=== PATIENT | male | born 1985 | race Caucasian/White ===

== ENCOUNTER 2017-10-18 07:22 | Day surgery (SDC) | payer OTHER ==
[2017-10-18] MEDS ORDERED: BUPIVACAINE 0.25% 30 ML SDV ONE (07:50)
--- NOTE | 2017-10-18 08:12 | PDHPUP ---
History & Physical Update H&P update statement: This history and physical update is based on an assessment of the patient which was completed after admission or registration (within 24 hours), but prior to the surgery/procedure. H&P update: H&P reviewed & patient examined, no change in patient's condition since H&P completed
[2017-10-18] MEDS ORDERED: ceFAZolin 2 GM/DEXTROSE 100 ML IV ONE (08:22)
[2017-10-18] MEDS ORDERED: LR 1,000 ML IV ONE (08:22)
[2017-10-18] MEDS ORDERED: LIDOCAINE 1% 2 ML INJ ID PRN (08:22)
[2017-10-18] MEDS ORDERED: MIDAZOLAM 2 MG/2 ML VIAL IVP ONE (09:01)
--- NOTE | 2017-10-18 09:02 | PDANEPAE ---
ANE History of Present Illness umbilical hernia ANE Past Medical History - Cardiovascular History Hx Hypertension: No Hx Arrhythmias: No Hx Chest Pain: No Hx Coronary Artery / Peripheral Vascular Disease: No Hx CHF / Valvular Disease: No Hx Palpitations: No - Pulmonary History Hx COPD: No Hx Asthma/Reactive Airway Disease: No Hx Recent Upper Respiratory Infection: No Hx Oxygen in Use at Home: No Hx Sleep Apnea: No Sleep Apnea Screening Result - Last Documented: Negative - Neurologic History Hx Cerebrovascular Accident: No Hx Seizures: No Hx Dementia: No - Endocrine History Hx Diabetes: No - Renal History Hx Renal Disorders: No - Liver History Hx Hepatic Disorders: No - Neurological & Psychiatric Hx Hx Neurological and Psychiatric Disorders: No - Cancer History Hx Cancer: No - Congenital Disorder History Hx Congenital Disorders: No - GI History Hx Gastrointestinal Disorders: No - Other Health History Other Health History: missing front teeth - Chronic Pain History Chronic Pain: No - Surgical History Prior Surgeries: dental surgery ANE Review of Systems Review of Systems: - Exercise capacity METS (RN): 6 METS ANE Patient History - Allergies Allergies/Adverse Reactions: No Known Allergies Allergy (Verified 10/15/17 14:48) - Home Medications Home Medications: NK [No Known Home Meds] 10/15/17 [Last Taken Unknown] - NPO status NPO Since - Liquids (Date): 10/17/17 NPO Since - Liquids (Time): 21:00 NPO Since - Solids (Date): 10/17/17 NPO Since - Solids (Time): 21:00 - Smoking Hx Smoking Status: Former smoker - Family Anes Hx Family Hx Anesthesia Complications: none ANE Labs/Vital Signs - Vital Signs Blood Pressure: 124/76 Heart Rate: 62 Respiratory Rate: 16 O2 Sat (%): 97 Height: 176.53 cm Weight: 73.709 kg ANE Physical Exam - Airway Neck exam: FROM Mallampati Score: Class 1 Mouth exam: normal dental/mouth exam - Pulmonary Pulmonary: no respiratory distress - Cardiovascular Cardiovascular: regular rate and rhythym - ASA Status ASA Status: I ANE Anesthesia Plan Anesthesia Plan: general endotracheal anesthesia
[2017-10-18] MEDS ORDERED: fentaNYL 100 MCG/2 ML INJ ONE ×2 (09:08)
[2017-10-18] MEDS ORDERED: PROPOFOL 200 MG/20 ML VIAL ONE (09:08)
[2017-10-18] MEDS ORDERED: fentaNYL 100 MCG/2 ML INJ IVP PRN (09:22)
[2017-10-18] MEDS ORDERED: NALOXONE HCL 0.4 MG/ML INJ IVP PRN (09:22)
[2017-10-18] MEDS ORDERED: ONDANSETRON 4 MG/2 ML VIAL IVP PRN (09:22)
[2017-10-18] MEDS ORDERED: METOCLOPRAMIDE 10 MG/2 ML VIAL IVP PRN (09:22)
[2017-10-18] MEDS ORDERED: HYDROmorphONE/DILAUDID 1 MG/ML INJ IVP PRN (09:22)
--- NOTE | 2017-10-18 10:08 | POSTOPPROG ---
Post Op Note Date of Operation: 10/18/17 Surgeon: Bhupinder Villarreal Anesthesiologist: Jin Anesthesia: GET(General Endotracheal) Pre-op Diagnosis: umbilical hernia Post-op Diagnosis: same Procedure: umbilical hernia repair with mesh Findings: repaired with Symbotex 4.6cm mesh Inf/Abcess present in the surg proc area at time of surgery?: No EBL: Minimal
--- NOTE | 2017-10-18 10:13 | POSTANESTH ---
Post Anesthetic Evaluation Cardiovascular Status: Normal, Stable Respiratory Status: Normal, Stable Level of Consciousness/Mental Status: Can Participate in Eval Pain Control: Adequate, Prn Tx Ordered Nausea/Vomiting Control: Adequate, Prn Tx Ordered Complications Possibly Related to Anesthesia: None Noted
[2017-10-18 11:30] VITALS: BP 128/80
--- NOTE | 2017-10-18 14:33 | GOP ---
[f rep st] OPERATIVE REPORT DATE OF OPERATION: 10/18/2017 SURGEON: Bhupinder Villarreal MD HYDRO ELECTRIC STATION OPERATOR: None. ANESTHESIA: General endotracheal. ANESTHESIOLOGIST: Dr. Abdi. PREOPERATIVE DIAGNOSIS: Symptomatic umbilical hernia. POSTOPERATIVE DIAGNOSIS: Symptomatic umbilical hernia. PROCEDURE PERFORMED: Open umbilical hernia repair with mesh. FINDINGS: 1.5 cm defect successfully repaired with 4.6 cm Parietex composite ventral hernia patch. SPECIMENS: None. ESTIMATED BLOOD LOSS: 5 cc. DESCRIPTION OF PROCEDURE: The patient was greeted in the preoperative suite. Once again, risks, wanda efits, and alternatives were discussed. Consent was signed. He was then brought back to the operati ve suite, placed on the OR table in a supine position. After all anesthesia machines, including SCDs were on and functioning, [employer] time-out was performed. After successful inducti on of general anesthesia, the patient's abdomen was prepped and draped in typical sterile fashion. I entered the abdomen via an infraumbilical curvilinear incision. I carried this down through subcut aneous tissue. I amputated the umbilical stalk from the underlying hernia sac. Once the sac was julian ed, I successfully cleaned the entire surrounding fascia. The defect was approximately 1.5 cm. I deena aned this for an area of about 2 cm on either side underlying the fascia to create an appropriate spa ce for my mesh. Once this was done, I brought the mesh into the field. I moistened it with sterile saline. It was successfully placed within the defect and brought up and allowed to lay flat against the overlying fascial surface. Using the 4 anchoring tabs, I successfully connected to the fascial e dges using interrupted 2-0 Prolene sutures. Once again, it was inspected to ensure that it was lying appropriately. I then turned my attention toward closing the fascia, which was done with multiple interrupted 0 Surg ilon sutures noting excellent fascial reapproximation under minimal tension. Local anesthesia was th en infiltrated into the fascia. The umbilical stalk was then reapproximated appropriately. The subc utaneous tissue closed first with interrupted 3-0 Vicryl, followed by a running 4-0 Monocryl over whi ch Dermabond was placed. Sterile cotton ball and dressing were placed over this. The patient was th en extubated in the operative suite and taken to the PACU in satisfactory condition. DRAINS: None. COUNTS: All counts were reported as correct x2. /[id number]/MODL
== END 2017-10-18 11:25 | disposition home or self-care (01) ==
LOC: FSGY 07:22
PROVIDERS: ATTEND Surgery
PROC: 0WUF0JZ Supplement Abdominal Wall with Synthetic Substitute, Open Approach (ICD-10-PCS; principal; 2017-10-18 08:45)
DX: K42.9 Umbilical hernia without obstruction or gangrene (principal)
CPT/HCPCS: C1781; J0690; J2250; J2704; J3010